=== PATIENT | female | born 1960 | race Caucasian/White ===

== ENCOUNTER 2018-05-12 23:40 | Emergency (ER) | payer MEDICAID ==
[~2018-05-12] VITALS: Ht 165.1 cm; Wt 81.8 kg
[2018-05-13] MEDS ORDERED: SODIUM CHLORIDE 0.9% 1,000 ML IV ONE (03:23)
[2018-05-13] MEDS ORDERED: ONDANSETRON HCL 4MG/2ML INJ IV ONE (03:30)
[2018-05-13] MEDS ORDERED: FAMOTIDINE 20MG/2ML VIAL IV ONE (03:30)
[2018-05-13 04:23] LABS: BASOPHILS % 0.5 % (0.0-2.0); EOSINOPHILS % 2.4 % (0.0-5.0); HEMATOCRIT. 40.3 % (36.0-48.0); HEMOGLOBIN. 13.6 g/dL (12.0-16.0); MEAN CORPUSCULAR HEMOGLOBIN 29.8 pg (28.0-32.0); MEAN PLATELET VOLUME 9.6 fl (7.4-10.4); MONOCYTES % 5.8 % (2.0-8.0); NEUTROPHILS % 54.3 % (40.0-76.0); PLATELET 210 x1000/uL (130-400); RED BLOOD CELL COUNT 4.58 mill/uL (4.2-5.4); RED CELL DISTRIBUTION WIDTH 14.2 % (11.6-14.6)
[2018-05-13 04:25] LABS: CLARITY URINE CLEAR (CLEAR); COLOR URINE YELLOW (YELLOW); KETONES URINE NEGATIVE (NEGATIVE); LEUKOCYTE ESTERASE URINE 1+ (NEGATIVE); NITRITE URINE NEGATIVE (NEGATIVE); OCCULT BLOOD URINE NEGATIVE (NEGATIVE); PH URINE 6.5 (4.5-8.0); PROTEIN URINE NEGATIVE (NEGATIVE)
[2018-05-13 04:26] LABS: CHLORIDE 105 mEq/L (98-107); PROTHROMBIN TIME 9.7 sec (9.1-11.1)
[2018-05-13 07:00] VITALS: BP 124/56
== END 2018-05-13 07:01 | disposition home or self-care (01) ==
LOC: ER 23:40
DX: N39.0 Urinary tract infection, site not specified (principal); R79.89 Other specified abnormal findings of blood chemistry
CPT/HCPCS: 36415; 74176; 80053; 81003; 81025; 83690; 85025; 85610; 86850; 86900; 86901; 87086; 96361; 96374; 96375; 99285; J2405; J3490; J7030